=== PATIENT | male | born 1945 | race Caucasian/White ===

== ENCOUNTER → 2019-12-01 | Outpatient (CLI) | payer OTHER ==
--- NOTE | 2019-12-01 09:46 | EKG REPORT ---
SEVERITY:- ABNORMAL ECG - SINUS RHYTHM NONSPECIFIC INTRAVENTRICULAR CONDUCTION DELAY : Confirmed by: Gaviota Peña 01-Dec-2019 09:46:03
[2019-12-01 10:00] LABS: ABSOLUTE BASOPHILS # (AUTO) 0.1 10^3/uL (0.0-0.2); ABSOLUTE EOSINOPHILS # (AUTO) 0.9 10^3/uL (0.0-0.6); ABSOLUTE LYMPHOCYTES (AUTO) 2.5 10^3/uL (0.5-4.7); ABSOLUTE MONOCYTES (AUTO) 0.6 10^3/uL (0.1-1.4); ABSOLUTE NEUT (AUTO) 4.2 10^3/uL (1.7-8.2); BASOPHILS % (AUTO) 0.8 % (0-2); EOSINOPHILS % (AUTO) 11.2 % (0-6); HEMATOCRIT 39.3 % (37.9-51.0); HEMOGLOBIN 13.3 g/dL (13.5-17.0); LYMPHOCYTES % (AUTO) 30.4 % (13-45); MEAN CORPUSCULAR HEMOGLOBIN 31.2 pg (27.0-33.4); MEAN CORPUSCULAR HGB CONC 33.8 g/dL (32.0-36.0); MEAN CORPUSCULAR VOLUME 93 fl (80-97); MONOCYTES % (AUTO) 7.4 % (3-13); PLATELET COUNT 267 10^3/uL (150-450); RED BLOOD COUNT 4.25 10^6/uL (4.35-5.55); SEGMENTED NEUTROPHILS % (AUTO) 50.2 % (42-78); TOTAL CELLS COUNTED % (AUTO) 100 %; WHITE BLOOD COUNT 8.3 10^3/uL (4.0-10.5)
[2019-12-01 10:09] LABS: APPEARANCE,URINE SLIGHTLY-CLOUDY; BILIRUBIN,URINE NEGATIVE (NEGATIVE); COLOR,URINE YELLOW; GLUCOSE, URINE NEGATIVE (NEGATIVE); KETONES,URINE NEGATIVE (NEGATIVE); LEUKOCYTE ESTERASE,URINE NEGATIVE (NEGATIVE); NITRITE,URINE NEGATIVE (NEGATIVE); PROTEIN,URINE 100 mg/dL (NEGATIVE); URINE SPECIFIC GRAVITY 1.024
[2019-12-01 10:21] LABS: ALBUMIN 4.7 g/dL (3.5-5.0); ANION GAP 9 (5-19); BLOOD UREA NITROGEN 18 mg/dL (7-20); C-REACTIVE PROTEIN 5.1 mg/L (<10.0); CARBON DIOXIDE 32 mmol/L (22-30); CHLORIDE 101 mmol/L (98-107); GLUCOSE 151 mg/dL (75-110); POTASSIUM 5.3 mmol/L (3.6-5.0)
[2019-12-01 10:26] LABS: PREALBUMIN 26.1 mg/dL (17.6-36.0)
[2019-12-01 10:36] LABS: ERYTHROCYTE SEDIMENTATION RATE 28 mm/hr (0-20)
--- NOTE | 2019-12-01 12:15 | RADIOLOGY REPORT (SQ) ---
EXAM DESCRIPTION: CHEST PA/LATERAL COMPLETED DATE/TIME: 12/01/2019 9:48 am REASON FOR STUDY: PRE-OP COMPARISON: None. EXAM PARAMETERS: NUMBER OF VIEWS: two views TECHNIQUE: Digital Frontal and Lateral radiographic views of the chest acquired. RADIATION DOSE: NA LIMITATIONS: none FINDINGS: LUNGS AND PLEURA: No opacities, masses or pneumothorax. No pleural effusion. MEDIASTINUM AND HILAR STRUCTURES: No masses or contour abnormalities. HEART AND VASCULAR STRUCTURES: Heart normal size. No evidence for failure. BONES: No acute findings. HARDWARE: Old shrapnel over the right posterior flank OTHER: No other significant finding. IMPRESSION: No acute findings Old shrapnel over the right posterior flank TECHNICAL DOCUMENTATION: JOB ID: [id number] [employer]- All Rights Reserved Reading location - IP/workstation name: [email or web address]
== END ==
LOC: OD 09:00
PROVIDERS: ATTEND Orthopaedic Surgery
DX: Z01.818 Encounter for other preprocedural examination (principal); R94.31 Abnormal electrocardiogram [ECG] [EKG]; I10 Essential (primary) hypertension
CPT/HCPCS: 36415; 71046; 80048; 81001; 82040; 82306; 83036; 84134; 85025; 85652; 86140; 93005; 93010

== ENCOUNTER 2019-12-29 07:11 | Observation (INO) | payer OTHER ==
[~2019-12-29 07:11] MED LIST: ACETAMINOPHEN 325 MG TABLET PO PRN; CEFAZOLIN SODIUM 3 GM in DEXTROSE 5%-WATER 100 ML IV PRN; CELECOXIB 200 MG CAPSULE PO PRN; GABAPENTIN 100 MG CAPSULE PO PRN; LACTATED RINGERS 1000 ML IV PRN; LIDOCAINE 0.5% INJ-PF (5 MG/ML) 50 ML SDV SUBCUT PRN; ONDANSETRON HCL INJ/PF 4 MG/2 ML SDV IV PRN; OXYCODONE HCL SR 10 MG TABLET PO PRN; SCOPOLAMINE HYDROBROMIDE 1.5 MG PATCH.TD72 TD PRN; TRAMADOL HCL 50 MG TABLET PO PRN; TRANEXAMIC ACID INJ/PF 1,000 MG/10 ML SDV IV PRN; VANCOMYCIN HCL 1,000 MG in DEXTROSE 5%-WATER 250 ML IV PRN
[2019-12-29] MEDS ORDERED: CELECOXIB 200 MG CAPSULE ONE (07:53)
[2019-12-29] MEDS ORDERED: ACETAMINOPHEN 325 MG TABLET ONE ×2 (07:53→08:06)
[2019-12-29] MEDS ORDERED: GABAPENTIN 100 MG CAPSULE ONE (07:54)
[2019-12-29] MEDS ORDERED: SCOPOLAMINE HYDROBROMIDE 1.5 MG PATCH.TD72 ONE (07:54)
[2019-12-29] MEDS ORDERED: ONDANSETRON HCL INJ/PF 4 MG/2 ML SDV ONE ×2 (07:54→09:55)
[2019-12-29] MEDS ORDERED: TRAMADOL HCL 50 MG TABLET ONE (07:54)
[2019-12-29] MEDS ORDERED: OXYCODONE HCL SR 10 MG TABLET PO ONE (07:54)
[2019-12-29] MEDS ORDERED: PROPOFOL INJ 200 MG/20 ML VIAL IV ONE (09:54)
[2019-12-29] MEDS ORDERED: MIDAZOLAM 2 MG/2 ML INJ ONE (09:55)
[2019-12-29] MEDS ORDERED: TRANEXAMIC ACID INJ/PF 1,000 MG/10 ML SDV ONE (09:55)
[2019-12-29] MEDS ORDERED: EPINEPHRINE INJ/PF 1 MG/1 ML AMPULE ONE (09:55)
[2019-12-29] MEDS ORDERED: BUPIVACAINE HCL 0.5 % INJ/PF 30 ML SDV ONE (09:59)
[2019-12-29] MEDS ORDERED: FENTANYL CITRATE INJ/PF 100 MCG/2 ML AMPUL IV PRN ×3 (10:54)
[2019-12-29] MEDS ORDERED: MORPHINE SULFATE 10 MG/ML INJ IV PRN ×2 (10:54→13:52)
[2019-12-29] MEDS ORDERED: PROMETHAZINE HCL INJ 25 MG/1 ML VIAL IV PRN (10:54)
[2019-12-29] MEDS ORDERED: DIPHENHYDRAMINE HCL 50 MG/ML VIAL IV PRN (10:54)
[2019-12-29] MEDS ORDERED: MEPERIDINE HCL/PF INJ 25 MG/1 ML DISP.SYRIN IV PRN (10:54)
[2019-12-29] MEDS: BUPIVACAINE HCL 0.25 % INJ/PF (2.5 MG/1 ML) 30 ML VIAL ONE ×2 (11:27→11:57)
[2019-12-29] MEDS: LIDOCAINE 1% INJ-PF (10 MG/ML) 30 ML SDV ONE ×2 (11:27→11:57)
[2019-12-29] MEDS: KETOROLAC TROMETHAMINE INJ/PF 30 MG/1 ML SDV ONE ×2 (11:28→11:57)
[2019-12-29] MEDS: VANCOMYCIN HCL INJ 1000 MG VIAL ONE ×2 (11:29→11:59)
[2019-12-29] MEDS ORDERED: DEXAMETHASONE SOD PHOS INJ 10 MG/1 ML VIAL ONE (12:44)
[2019-12-29] MEDS ORDERED: ALBUTEROL SULFATE 0.083% NEB 2.5 MG/3 ML AMPUL NEB ONE (12:45)
--- NOTE | 2019-12-29 12:49 | Operative Report ---
Operative Report DATE OF SURGERY: 12/29/19 PREOPERATIVE DIAGNOSIS: Severe right knee primary osteoarthritis POSTOPERATIVE DIAGNOSIS: Severe right knee primary osteoarthritis OPERATION: Right total knee arthroplasty SURGEON: TIMMY MALIK JR ANESTHESIA: Spinal COMPLICATIONS: None ESTIMATED BLOOD LOSS: 20 cc PROCEDURE: Components: Lisa persona total knee: #7 PS femur, 10 x F tibia, and a 35 patella OPERATIVE PROCEDURE: Patient was brought to the operating room and spinal anesthesia was administered. After proper anesthesia was obtained, patient was positioned, padded, prepped, and draped in the usual sterile fashion on the operating room table. 2 grams of Ancef and 1 g of vancomycin were given. Appropriate time out was performed. Anterior incision and medial-parapatella approach was performed. Severe degenerative arthritis was noted. Osteophytes were removed from the femur and tibia, and the remainder of the ACL and PCL were removed. The proximal tibia was then prepared and cut perpendicular to the tibial shaft axis and measured to a F tibia. The distal femur was drilled, the canal was irrigated and the distal femoral guide was placed. The distal femur was cut 12 mm to 5 degrees of varus. An extension 10 block was placed in the gap was found to be excellent. The tensor was placed in extension and the extension gap was balanced with releases until the goniometer on the tensor measured to 0. The tensor was placed in flexion and the femur was sized to 7. Drill holes were placed to the appropriate femoral rotation. The 4 and 1 block was placed and the flexion gap was then re-checked with the tensor adapter and found to be appropriate. Anterior-posterior and chamfer cuts were made. Posterior osteophytes were removed. The femoral trial was then placed, and the notch was cut. The combination of the tibial baseplate and the 10 mm polyethylene liner were then placed and the knee was taken through a range of motion with the trials in. This had excellent balance in extension and flexion as well as patellar tracking. The patella AP aspect was measured to 24 mm and the patella was cut parallel to the anterior patella surface. A 35 mm button was placed medially and superiorly as possible and the patella-button construct again measured 24 mm. This was again taken through a range of motion and found to have excellent balance, stability and ease of full motion. The rotation of the tibial baseplate was marked, the tibial was anteriorly subluxed and the tibial component was pinned and drilled and punched. All the trials were then removed and the wound was copiously irrigated with sterile saline followed by a Betadine soak. After pulsatile irrigation of the mat and soft tissue surfaces, the mat surfaces were cleaned and dried, and cementation of the femur, tibia, and patella was performed. All excess cement was thoroughly removed. The knee was placed in slight flexion until cement was hard. Periarticular injection with Lidocaine, Marcaine and Toradol was performed. The knee was irrigated copiously. A gram of Vancomycin was placed intra-articularly. The extensor m echanism was closed with 0 vicryl tacking sutures and number 2 Stratofix. The subcutaneous tissue was closed with 2-0 monocryl and the skin closed with 3-0 running monocryl. A silver dressing was applied. All needle sponge and instrument counts were correct. Patient was awakened from sedation anesthesia and taken to recovery room in good condition. Timmy Malik DO
[2019-12-29] MEDS ORDERED: ROPIVACAINE HCL 0.5% INJ/PF (5 MG/1 ML) 30 ML SDV ONE (13:12)
[2019-12-29] MEDS ORDERED: LIDOCAINE 2% INJ (20 MG/ML) 20 ML MDV ONE (13:12)
--- NOTE | 2019-12-29 13:25 | RADIOLOGY REPORT (SQ) ---
EXAM DESCRIPTION: KNEE RIGHT 2 VIEWS COMPLETED DATE/TIME: 12/29/2019 1:13 pm REASON FOR STUDY: post op M17.11 UNILATERAL PRIMARY OSTEOARTHRITIS, RIGHT KNEE COMPARISON: None. NUMBER OF VIEWS: Two view(s). TECHNIQUE: Digital radiographic images of the right knee post-procedure. LIMITATIONS: None. FINDINGS: BONES: No worrisome or unexpected findings post-procedure. DEVICE: Total knee arthroplasty SOFT TISSUES: No worrisome findings. Expected postoperative soft tissue changes. IMPRESSION: SATISFACTORY POSTOPERATIVE RIGHT KNEE. TECHNICAL DOCUMENTATION: JOB ID: [id number] 2010 [employer]- All Rights Reserved Reading location - IP/workstation name: [email or web address]
[2019-12-29] MEDS ORDERED: OXYCODONE HCL IR 5 MG TABLET PO PRN ×2 (13:51)
[2019-12-29] MEDS ORDERED: TRAMADOL HCL 50 MG TABLET PO PRN (13:52)
[2019-12-29] MEDS ORDERED: PANTOPRAZOLE SODIUM 20 MG TABLET.DR PO PRN (13:54)
[2019-12-29] MEDS ORDERED: ZOLPIDEM TARTRATE 5 MG TABLET PO PRN (13:54)
[2019-12-29] MEDS ORDERED: DIPHENHYDRAMINE HCL 25 MG CAPSULE PO PRN (13:54)
[2019-12-29] MEDS ORDERED: DOCUSATE SODIUM 100 MG CAPSULE PO PRN (13:55)
[2019-12-29] MEDS ORDERED: NORMAL SALINE 1000 ML 1,000 ML IV PRN (13:55)
[2019-12-29] MEDS ORDERED: ONDANSETRON 4 MG TAB.RAPDIS PO PRN (13:56)
[2019-12-29] MEDS ORDERED: DEXTROSE 50%-WATER SYRINGE 25 GM/50 ML DOSE IV PRN (16:30)
[2019-12-29] MEDS ORDERED: DEXTROSE 40% GEL 15 GM TUBE X 2 PO PRN (16:30)
[2019-12-29] MEDS ORDERED: DEXTROSE 50%-WATER SYRINGE 12.5 GM/25 ML DOSE IV PRN (16:30)
[2019-12-29] MEDS ORDERED: DEXTROSE 40% GEL 15 GM TUBE PO PRN (16:30)
[2019-12-29] MEDS ORDERED: GLUCAGON,HUMAN RECOMB 1 MG INJ IM PRN (16:30)
[2019-12-29] MEDS: KETOROLAC TROMETHAMINE INJ/PF 30 MG/1 ML SDV IV SCH (17:13)
[2019-12-29] MEDS: CEFAZOLIN SODIUM 3 GM in DEXTROSE 5%-WATER 100 ML IV SCH (18:36)
[2019-12-29] MEDS: ACETAMINOPHEN 325 MG TABLET PO SCH (21:15)
[2019-12-29] MEDS: GABAPENTIN 100 MG CAPSULE PO SCH (21:16)
[2019-12-29] MEDS: INSULIN LISPRO 100 UNIT/ML 3 ML VIAL SUBCUT SCH (21:16)
[2019-12-30] MEDS: CEFAZOLIN SODIUM 3 GM in DEXTROSE 5%-WATER 100 ML IV SCH (02:00)
[2019-12-30] MEDS: KETOROLAC TROMETHAMINE INJ/PF 30 MG/1 ML SDV IV SCH ×2 (02:00→09:45)
[2019-12-30] MEDS: ACETAMINOPHEN 325 MG TABLET PO SCH (05:15)
[2019-12-30] MEDS: INSULIN LISPRO 100 UNIT/ML 3 ML VIAL SUBCUT SCH (08:09)
[2019-12-30] MEDS: GABAPENTIN 100 MG CAPSULE PO SCH (09:45)
[2019-12-30 09:55] VITALS: BP 172/78
[2019-12-30] MEDS ORDERED: CELECOXIB 200 MG CAPSULE PO SCH (10:00)
[2019-12-30] MEDS ORDERED: ASPIRIN 325 MG TABLET, ENT COATED PO SCH (10:00)
[2019-12-30] MEDS ORDERED: POLYETHYLENE GLYCOL 3350 POWDER 17 GM/1 PACKET PO SCH (10:00)
--- NOTE | 2019-12-30 14:52 | PDOC PROGRESS REPORT ---
Subjective Progress Note for:: 12/30/19 Subjective:: The patient is doing well this AM. Pain is present but not out of proportion and well controlled on their current medications. There are no new symptoms or overnight events. Overall they are felling well without complaints. They deny chest pain, shortness of breath or motor or sensory loss. Reason For Visit: M17.11 UNILATERAL PRIMARY OSTEOAR Physical Exam Vital Signs: Temp Pulse Resp BP Pulse Ox 98.0 F 64 18 172/78 H 97 12/30/19 09:52 12/30/19 09:52 12/30/19 09:52 12/30/19 09:52 12/30/19 09:52 Intake & Output 12/29/19 12/30/19 12/31/19 06:59 06:59 06:59 Intake Total 7536 Output Total 2800 Balance 4736 Weight 139.4 kg Physical Exam: Right lower extremity -Pulses 2+ distally -Compartments soft -Wound clean dry and intact no drainage, appropriate appearance for postop day 1 -Sensation grossly intact to L3-4-5 S1 -Motor grossly intact to EHL TA gastroc and quad - Able to perform quad extension and elevate heel off of bed. Results Laboratory Results: 12/29/19 08:07 Impressions: Knee X-Ray 12/29/19 00:00 IMPRESSION: SATISFACTORY POSTOPERATIVE RIGHT KNEE. Assessment & Plan - Diagnosis (1) Status post total right knee replacement Is this a current diagnosis for this admission?: Yes Plan: - 2 doses of Ancef postoperatively q 8 hours to complete 24 hours perioperatively -Weightbearing as tolerated, no precautions, encourage out of bed AL for ADL training - PT/OT - Keep knee extended in bed, rolled towel under the ankle to obtain full extension -aspirin 325 daily for DVT prophylaxis for 6 weeks -multimodal pain management to avoid excessive narcotics, including gabapentin, tramadol, Toradol, acetaminophen. -Dressing should not be removed for 7 to 10 days until seen in the office -May shower with the dressing intact, if it starts to come off she should not get the incision wet. -I would like to follow the patient my office within the next 7 to [address] [place] [address]. in [place] office #: [phone] - Time Time Spent with patient: Less than 15 minutes
--- NOTE | 2019-12-30 14:54 | PDOC DISCHARGE SUMMARY ---
Impression - Admit/DC Date/PCP Admission Date/Primary Care Provider: 12/29/19 07:11 HALI MCCARTY NP Discharge Date: 12/30/19 - Discharge Diagnosis (1) Status post total right knee replacement Is this a current diagnosis for this admission?: Yes - Assessment Summary: Mr. Morocho is a very pleasant 74-year-old male who presented to my clinic with chronic right knee pain that is been going on for over a year. After thorough work-up and attempts at conservative treatment including activity modification and bkeu-abj-wvyxqxt pain medication, they were having severe difficulty with ambulation and was over the counter pain medication for daily activity. They found the pain debilitating and decreasing thier quality of life as they were unable to perform activities of daily living such as ambulating short distances and getting in and out of the car. After a thorough work-up including x-rays that demonstrated joint space narrowing, yiqs-yx-nobx contact, subchondral sclerosis, and osteophyte formation as well as discussing risks and benefits and other treatment options, the patient elected to proceed with a right total knee arthroplasty. They were brought to the operating room on 12/29/2019 and underwent a right total knee arthroplasty and tolerated procedure very well with out complication. They were then admitted to the hospital floor for postoperative medical management, monitoring, and pain control. On postoperative day #1 they were ambulating well with physical therapy, to the degree that they approved them for discharge home. They were discharged home on postoperative day #1. They had no acute events or complications over the course of their stay. All detailed instructions and prescriptions were provided to the patient prior to admission on the year prior office visit. - Additional Information Resuscitation Status: Full Code Discharge Diet: As Tolerated Discharge Activity: Activity As Tolerated, No Driving, Keep Legs Elevated, No Lifting Over 10 Pounds, Slowly Increase Activity, Supervised Activity, No tub bath, Walk Frequently Referrals: RAMÓN MALIK JR, DO [ACTIVE PROVISIONAL STAFF] - 01/08/20 10:05 am Home Medications: Amlodipine Besylate [Norvasc 10 mg Tablet] 10 mg PO DAILY 12/21/19 Atenolol 100 mg PO DAILY 12/21/19 Cinnamon Bark/Chromium Picolin [Cinnamon Plus Chromium Capsule] 2,000 mg PO DAILY 12/21/19 Citalopram Hydrobromide [Citalopram HBr] 20 mg PO QHS 12/21/19 Fish Oil/Borage/Flax/Om3,6,9 1 [Hanna 3-6-9 1,200 mg Softgel] 1,200 mg PO BID 12/21/19 Metformin HCl 1,000 mg PO BID 12/21/19 Multivitamin [Multiple Vitamins] 1 tab PO DAILY 12/21/19 Pravastatin Sodium 10 mg PO DAILY 12/21/19 Acetaminophen [Tylenol 325 mg Tablet] 975 mg PO PREOP PRN tablet 12/29/19 Albuterol Sulfate [Proair HFA Inhalation Aerosol 8.5 gm MDI] 2 puff IH BIDP PRN 12/29/19 Aspirin [Ecotrin 81 mg EC Tablet] 81 mg PO DAILY 12/29/19 Celecoxib [Celebrex 200 mg Capsule] 200 mg PO PREOP PRN capsule 12/29/19 Gabapentin [Neurontin 100 mg Capsule] 100 mg PO PREOP PRN capsule 12/29/19 Oxycodone HCl [Oxycontin Sr 10 mg Tablet] 10 mg PO PREOP PRN tab.sr.12h 12/29/19 Tramadol HCl [Ultram 50 mg Tablet] 50 mg PO PREOP PRN tablet 12/29/19 History of Present Illiness History of Present Illness: JONH MOROCHO is a 74 year old male who presented to my clinic with chronic right knee pain that is been going on for over a year. After thorough work-up and attempts at conservative treatment including activity modification and gxqi-nvb-fiqitjj pain medication, they were having severe difficulty with ambulation and was over the counter pain medication for daily activity. They found the pain debilitating and decreasing thier quality of life as they were unable to perform activities of daily living such as ambulating short distances and getting in and out of the car. After a thorough work-up including x-rays that demonstrated joint space narrowing, tvba-jo-bbss contact, subchondral sclerosis, and osteophyte formation as well as discussing risks and benefits and other treatment options, the patient elected to proceed with a right total knee arthroplasty. Hospital Course Hospital Course: They were brought to the operating room on 12/29/2019 and underwent a right total knee arthroplasty and tolerated procedure very well with out complication. They were then admitted to the hospital floor for postoperative medical management, monitoring, and pain control. On postoperative day #1 they were ambulating well with physical therapy, to the degree that they approved them for discharge home. They were discharged home on postoperative day #1. They had no acute events or complications over the course of their stay. All detailed instructions and prescriptions were provided to the patient prior to admission on the year prior office visit. Physical Exam Vital Signs: Temp Pulse Resp BP Pulse Ox 98.0 F 64 18 172/78 H 97 12/30/19 09:52 12/30/19 09:52 12/30/19 09:52 12/30/19 09:52 12/30/19 09:52 Intake & Output 12/29/19 12/30/19 12/31/19 06:59 06:59 06:59 Intake Total 7536 Output Total 2800 Balance 4736 Weight 139.4 kg Results Laboratory Results: Potassium 4.2 mmol/L (3.6-5.0) 12/29/19 08:07 POC Glucose 195 mg/dL (70-110) H 12/30/19 06:11 Impressions: Knee X-Ray 12/29/19 00:00 IMPRESSION: SATISFACTORY POSTOPERATIVE RIGHT KNEE. Stroke Is this a Stroke Patient?: No Acute Heart Failure - Is this a Heart Failure Patient?: No
== END 2019-12-30 10:29 | disposition home health service (06) ==
LOC: INOR 07:11 → INTOOBSV 07:11 → EDSTATUS 09:30 → 4N 14:20
PROVIDERS: ADMIT Orthopaedic Surgery; ATTEND Orthopaedic Surgery
DX: M17.11 Unilateral primary osteoarthritis, right knee (principal); E11.9 Type 2 diabetes mellitus without complications; I10 Essential (primary) hypertension; E78.5 Hyperlipidemia, unspecified; E66.9 Obesity, unspecified; Z79.899 Other long term (current) drug therapy; Z79.82 Long term (current) use of aspirin; Z82.61 Family history of arthritis; Z79.84 Long term (current) use of oral hypoglycemic drugs
CPT/HCPCS: 27447; C1776; 01402; 36415; 82962; 84132; J0171; J0690; J1100; J1815; J1885; J2250; J2405; J2704; J2795; J3370; J3490; J7030; J7060

== ENCOUNTER → 2020-01-11 | Outpatient (CLI) | payer OTHER ==
--- NOTE | 2020-01-11 16:02 | RADIOLOGY REPORT (SQ) ---
EXAM DESCRIPTION: VENOUS UNILATERAL LOWER COMPLETED DATE/TIME: 01/11/2020 3:52 pm REASON FOR STUDY: RLE PAIN M79.661 PAIN IN RIGHT LOWER LEG COMPARISON: None. TECHNIQUE: Dynamic and static hollis scale and color images acquired of the right leg venous system. S elected spectral images acquired with additional compression and augmentation maneuvers. The contrala teral common femoral vein and saphenofemoral junction were also imaged. Images stored on PACS. LIMITATIONS: None. FINDINGS: COMMON FEMORAL: Normal phasicity, compression and augmentation. No visualized echogenic ma terial on hollis scale. No defects on color images. FEMORAL: Normal compression and augmentation. No visualized echogenic material on hollis scale. No defe cts on color images. POPLITEAL: Normal compression, augmentation. No visualized echogenic material on hollis scale. No defec ts on color images. CALF VESSELS: Normal compression, augmentation. No visualized echogenic material on hollis scale. No de fects on color images. GSV and SSV: Normal compression, augmentation. No visualized echogenic material on hollis scale. No def ects on color images. ANY DEEP VENOUS INSUFFICIENCY: Not evaluated. ANY EVIDENCE OF POPLITEAL CYST: No. OTHER: No other significant finding. CONTRALATERAL COMMON FEMORAL VEIN AND SAPHENOFEMORAL JUNCTION: Normal phasicity, compression and augmentation. No visualized echogenic material on hollis scale. No de fects on color images. IMPRESSION: NO EVIDENCE OF DVT OR SVT IN THE RIGHT LEG. TECHNICAL DOCUMENTATION: JOB ID: [id number] 2010 [employer]- All Rights Reserved Reading location - IP/workstation name: [email or web address]
== END ==
LOC: SP 13:30
PROVIDERS: ATTEND Orthopaedic Surgery
DX: M17.11 Unilateral primary osteoarthritis, right knee (principal); M79.661 Pain in right lower leg; R60.9 Edema, unspecified
CPT/HCPCS: 93971